=== PATIENT | female | born 1980 | race Two or more races ===

== ENCOUNTER 2018-01-12 21:06 | Emergency (ER) | payer SELFPAY ==
[~2018-01-12] VITALS: Ht 162.6 cm; Wt 134.0 kg
[2018-01-13] MEDS ORDERED: KETOROLAC 60MG/2ML VIAL IM ONE (01:45)
[2018-01-13] MEDS ORDERED: CYCLOBENZAPRINE 10MG TABLET PO ONE (04:00)
[2018-01-13 04:08] VITALS: BP 143/77
== END 2018-01-13 05:00 | disposition home or self-care (01) ==
LOC: ER 21:06
DX: R07.89 Other chest pain (principal); Z98.51 Tubal ligation status; V49.49XA Driver injured in collision with other motor vehicles in traffic accident, initial encounter; Y93.9 Activity, unspecified; Y92.410 Unspecified street and highway as the place of occurrence of the external cause
CPT/HCPCS: 71111; 96372; 99284; J1885